=== PATIENT | male | born 1990 | race Hispanic/Latino ===

== ENCOUNTER 2019-03-20 12:10 | Emergency (ER) | payer MEDICAID ==
[2019-03-20 13:25] LABS: APPEARANCE,URINE CLEAR (CLEAR); BILIRUBIN,URINE NEGATIVE (NEGATIVE); COLOR,URINE YELLOW (YELLOW); GLUCOSE, URINE (UA) NEGATIVE (NEGATIVE); KETONES,URINE NEGATIVE (NEGATIVE); LEUKOCYTE ESTERASE ,URINE LARGE (NEGATIVE); NITRATE,URINE NEGATIVE (NEGATIVE); OCCULT BLOOD,URINE LARGE (NEGATIVE); PH,URINE 6.5 (5.0-8.0); PROTEIN,URINE 30 mg/dL (NEGATIVE)
[2019-03-20] MEDS ORDERED: LIDOCAINE HCL-MPF 1% 2ML VIAL ONE (13:44)
[2019-03-20] MEDS ORDERED: CEFTRIAXONE SODIUM 500 MG VIAL ONE (13:44)
[2019-03-20 14:05] LABS: BACTERIA,URINE Rare /HPF (None Seen); SQUAMOUS EPITHELIAL CELL,UR Rare /HPF (0-2); WBC,URINE >100 /HPF (0-1)
== END 2019-03-20 14:43 | disposition home or self-care (01) ==
LOC: EDH 12:10
DX: N34.2 Other urethritis (principal); Z90.89 Acquired absence of other organs
CPT/HCPCS: 81001; 87088; 87486; 87797; 96372; 99284; J0696; J3490

== ENCOUNTER 2020-03-02 22:40 | Emergency (ER) | payer MEDICAID | END 2020-03-02 23:02 | disposition left against medical advice (07) | LOC: EDH 22:40 | DX: K03.81 Cracked tooth (principal); Z53.21 Procedure and treatment not carried out due to patient leaving prior to being seen by health care provider ==